=== PATIENT | male | born 1940 | race Caucasian/White ===

== ENCOUNTER 2016-06-26 20:09 | Inpatient (IN) | payer MEDICARE ==
[~2016-06-26 20:09] MED LIST: ALDACTONE DPS25 MG PO; CELEBREX200 MG PO; COZAAR100 MG PO; DULCOLAX-DPS10 MG PR; DULCOLAX-DPS5 MG PO; ELIQUIS2.5 MG PO; FEOSOL-DPS325 MG PO; LOMOTIL 2.5-0.1 EACH PO; MILK OF MAGNESI10 ML PO; OXY IR DPS5 MG PO; PREVACID30 MG PO; QUESTRAN DPS4 GM PO; SENOKOT S1 TAB PO; SURFAK DPS240 MG PO; TUMS DPS500 MG PO; TYLENOL DPS325 MG PO; ULTRAM DPS50 MG PO; VITAMIN B-12 SQ; ZOFRAN4 MG PO
[2016-07-01] MEDS ORDERED: IRON18 MG PO (17:14)
[2016-07-01] MEDS ORDERED: SYNTHROID100 MCG PO (17:14)
[2016-07-01] MEDS ORDERED: CARVEDILOL3.125 MG PO (17:14)
[2016-07-01] MEDS ORDERED: MAALOX DPS30 ML PO (17:16)
[2016-07-01] MEDS ORDERED: IMODIUM DPS2 MG PO (17:17)
[2016-07-01] MEDS ORDERED: POLYETHYLENE GL17 GM PO (17:17)
[2016-07-01] MEDS ORDERED: BACTRIM DS DPS1 TAB PO (17:18)
[2016-07-01] MEDS ORDERED: HYDROCODON-ACE1 EAC6 PO (17:18)
[2016-07-01] MEDS ORDERED: NORVASC5 MG PO (17:19)
[2016-07-01] MEDS ORDERED: ZANTAC DPS150 MG PO (17:19)
[2016-07-01] MEDS ORDERED: COLACE-DPS100 MG PO (17:19)
== END 2016-06-30 11:59 | disposition home or self-care (01) | DRG 699 ==
DX: N32.1 Vesicointestinal fistula (principal); N13.30 Unspecified hydronephrosis; N39.0 Urinary tract infection, site not specified; E78.5 Hyperlipidemia, unspecified; N62 Hypertrophy of breast; M19.90 Unspecified osteoarthritis, unspecified site; B96.89 Other specified bacterial agents as the cause of diseases classified elsewhere; M19.031 Primary osteoarthritis, right wrist; K59.00 Constipation, unspecified; N18.3 Chronic kidney disease, stage 3 (moderate); N45.1 Epididymitis; R59.1 Generalized enlarged lymph nodes; N43.3 Hydrocele, unspecified; I12.9 Hypertensive chronic kidney disease with stage 1 through stage 4 chronic kidney disease, or unspecified chronic kidney disease; E03.9 Hypothyroidism, unspecified; K21.9 Gastro-esophageal reflux disease without esophagitis; Z96.642 Presence of left artificial hip joint; Z82.49 Family history of ischemic heart disease and other diseases of the circulatory system; Z85.038 Personal history of other malignant neoplasm of large intestine